=== PATIENT | male | born 1995 | race American Indian/Alaskan Native ===

== ENCOUNTER 2020-05-15 01:40 | Emergency (ER) | payer SELFPAY ==
--- NOTE | 2020-05-15 02:15 | EDM.PDOCBH ---
ED HPI GENERAL MEDICAL PROBLEM - General Chief Complaint: Behavioral/Psych Stated Complaint: ANXIETY Time Seen by Provider: 05/15/20 02:05 Source of Information: Reports: Patient History Limitations: Reports: No Limitations - History of Present Illness INITIAL COMMENTS - FREE TEXT/NARRATIVE: ED with c/o anxiety started approximately 30" prior. Ran out of mediation one month ago. Had been on sertraline for past year. Has not attempted to make appointment in clinic . No thoughts of self harm, No hallucinations. Moved here from [place] one month ago. - Related Data Allergies Allergy/AdvReac Type Severity Reaction Status Date / Time No Known Allergies Allergy Verified 05/15/20 02:05 Home Meds: Home Meds . [No Known Home Meds] 05/15/20 [History] ED ROS GENERAL - Review of Systems Review Of Systems: Comprehensive ROS is negative, except as noted in HPI. ED EXAM, BEHAVIORAL HEALTH - Physical Exam Exam: See Below Exam Limited By: No Limitations General Appearance: Alert, No Apparent Distress, Obese Eye Exam: Bilateral Eye: EOMI Ears: Normal External Exam Nose: Normal Inspection Throat/Mouth: Normal Inspection Head: Atraumatic, Normocephalic Neck: Normal Inspection Respiratory/Chest: No Respiratory Distress, Normal Breath Sounds Cardiovascular: Normal Peripheral Pulses, Regular Rate, Rhythm Neurological: Alert, Normal Gait, Oriented x 3 Psychiatric: Alert, Oriented, Flat Affect, Poor Eye Contact. No: Homicidal Thoughts, Suicidal Plan, Suicidal Thoughts, Pressured Speech Skin Exam: Warm, Dry, Intact, Normal color COURSE, BEHAVIORAL HEALTH COMP - Course Vital Signs: Last Vital Signs Temp 97.3 F 05/15/20 02:02 Pulse 58 L 05/15/20 02:02 Resp 18 05/15/20 02:02 BP 135/87 05/15/20 02:02 Pulse Ox 95 05/15/20 02:02 Orders, Labs, Meds: Active Orders 24 hr Category Date Time Status DRUG SCREEN URINE BIORAD [URCHEM] Stat Lab 05/15/20 02:00 Received Departure - Departure Time of Disposition: 02:17 Disposition: Home, Self-Care 01 Condition: Good Clinical Impression: Anxiety - Discharge Information *PRESCRIPTION DRUG MONITORING PROGRAM REVIEWED*: Yes *COPY OF PRESCRIPTION DRUG MONITORING REPORT IN PATIENT OLIVER: No Instructions: Managing Anxiety, Adult Additional Instructions: Make appointment in clinic or with [facility] for ongoing managment of medication for anxiety avoid caffeine, avoind any type of energy drinks rest slow deep breathing exercises when feeling anxious Sepsis Event Note (ED) - Evaluation Sepsis Screening Result: No Definite Risk - Focused Exam Vital Signs: Vital Signs Temp Pulse Resp BP Pulse Ox 05/15/20 02:02 97.3 F 58 L 18 135/87 95 - My Orders Last 24 Hours: My Active Orders 05/15/20 02:00 DRUG SCREEN URINE BIORAD [URCHEM] Stat - Assessment/Plan Last 24 Hours: My Active Orders 05/15/20 02:00 DRUG SCREEN URINE BIORAD [URCHEM] Stat
[2020-05-15] MEDS: hydrOXYzine HCl 25 MG Tab PO ONE (02:28)
== END 2020-05-15 02:32 | disposition home or self-care (01) ==
LOC: DL.ED 01:40
DX: F41.9 Anxiety disorder, unspecified (principal)
CPT/HCPCS: 80305; 99283; A9270

== ENCOUNTER 2020-05-19 22:18 | Emergency (ER) | payer SELFPAY ==
[2020-05-19] MEDS ORDERED: hydrOXYzine HCl 25 MG Tab PO ONE (23:15)
--- NOTE | 2020-05-19 23:37 | EDM.PDOCBH ---
ED HPI GENERAL MEDICAL PROBLEM - General Chief Complaint: Behavioral/Psych Stated Complaint: ANXIETY Time Seen by Provider: 05/19/20 23:00 Source of Information: Reports: Patient, RN, RN Notes Reviewed History Limitations: Reports: No Limitations - History of Present Illness INITIAL COMMENTS - FREE TEXT/NARRATIVE: Patient is a 25-year-old male who presents to ER with complaint of anxiety. Patient states the anxiety began about 10 to 15 minutes prior to arrival in the ER. Patient is not tachycardic, does not have chest pain, has a very flat affect, does not appear anxious whatsoever. States he is to be taking sertraline and has used gabapentin in the past for anxiety. Patient states he has run out of these medications and has not yet made an appointment to get any kind of medications restarted. Is any other health problems. Onset: Today, Sudden - Related Data Allergies Allergy/AdvReac Type Severity Reaction Status Date / Time No Known Allergies Allergy Verified 05/19/20 22:29 Home Meds: Home Meds . [No Known Home Meds] 05/15/20 [History] Past Medical History - Past Health History Medical/Surgical History: Denies Medical/Surgical History Psychiatric History: Reports: Anxiety, Depression Social & Family History - Family History Family Medical History: No Pertinent Family History - Tobacco Use Tobacco Use Status *Q: Never Tobacco User Second Hand Smoke Exposure: No - Caffeine Use Caffeine Use: Reports: Soda - Recreational Drug Use Recreational Drug Use: No ED ROS GENERAL - Review of Systems Review Of Systems: Comprehensive ROS is negative, except as noted in HPI. ED EXAM, BEHAVIORAL HEALTH - Physical Exam Exam: See Below Exam Limited By: No Limitations General Appearance: Alert, WD/WN, No Apparent Distress Eye Exam: Bilateral Eye: EOMI, Normal Inspection Ears: Normal External Exam, Hearing Grossly Normal Nose: Normal Inspection Throat/Mouth: Normal Inspection, Normal Voice, No Airway Compromise Head: Atraumatic, Normocephalic Neck: Normal Inspection, Supple, Non-Tender, Full Range of Motion Respiratory/Chest: No Respiratory Distress, Lungs Clear, Normal Breath Sounds, No Accessory Muscle Use, Chest Non-Tender Cardiovascular: Normal Peripheral Pulses, Regular Rate, Rhythm, No Edema, No Gallop, No JVD, No Murmur, No Rub GI/Abdominal: Normal Bowel Sounds, Soft, Non-Tender, No Organomegaly, No Distention, No Abnormal Bruit, No Mass (Male) Exam: Deferred Rectal (Males) Exam: Deferred Back Exam: Normal Inspection, Full Range of Motion, NT Extremities: Normal Inspection, Normal Range of Motion, Non-Tender, Normal Capillary Refill, No Pedal Edema Neurological: Alert, Normal Mood/Affect, CN II-XII Intact, Normal Cognition, Normal Gait, Normal Reflexes, No Motor/Sensory Deficits, Oriented x 3 Psychiatric: Alert, Normal Affect, Normal Cognition, Normal Mood, Oriented Skin Exam: Warm, Dry, Intact, Normal color, No rash COURSE, BEHAVIORAL HEALTH COMP - Course Vital Signs: Last Vital Signs Temp 98.5 F 05/19/20 22:30 Pulse 84 05/19/20 22:30 Resp 16 05/19/20 22:30 BP 148/86 H 05/19/20 22:30 Pulse Ox 97 05/19/20 22:30 Orders, Labs, Meds: Medications Discontinued Medications Generic Name Dose Route Start Last Admin Trade Name Freq PRN Reason Stop Dose Admin Hydroxyzine HCl 25 mg 05/19/20 23:15 05/19/20 23:34 Atarax PO 05/19/20 23:16 25 mg ONETIME ONE Administration Departure - Departure Time of Disposition: 23:42 Disposition: Home, Self-Care 01 Condition: Good Clinical Impression: Anxiety - Discharge Information *PRESCRIPTION DRUG MONITORING PROGRAM REVIEWED*: No *COPY OF PRESCRIPTION DRUG MONITORING REPORT IN PATIENT OLIVER: No Instructions: Managing Anxiety, Adult Forms: ED Department Discharge Additional Instructions: Make an appointment at the clinic to get medications reordered Follow up with the [facility] regarding anxiety Sepsis Event Note (ED) - Evaluation Sepsis Screening Result: No Definite Risk - Focused Exam Vital Signs: Vital Signs Temp Pulse Resp BP Pulse Ox 05/19/20 22:30 98.5 F 84 16 148/86 H 97
== END 2020-05-19 23:46 | disposition home or self-care (01) ==
LOC: DL.ED 22:18
DX: F41.9 Anxiety disorder, unspecified (principal)
CPT/HCPCS: 99283; A9270

== ENCOUNTER 2020-06-04 21:29 | Emergency (ER) | payer SELFPAY ==
[2020-06-04] MEDS ORDERED: Famotidine 20 MG Tab PO ONE (21:51)
[2020-06-04] MEDS ORDERED: Ondansetron 4 MG Tab.DIS PO ONE (21:51)
--- NOTE | 2020-06-04 21:56 | EDM.PDOC ---
ED HPI GENERAL MEDICAL PROBLEM - General Chief Complaint: Gastrointestinal Problem Stated Complaint: GENERAL Time Seen by Provider: 06/04/20 21:45 Source of Information: Reports: Patient, Old Records, RN, RN Notes Reviewed History Limitations: Reports: No Limitations - History of Present Illness INITIAL COMMENTS - FREE TEXT/NARRATIVE: Patient presents to the ED via personal vehicle with complaints of nausea. The patient reports the nausea began about one hour prior and has not progressed or worsened in that time. He has not taken any medications for this problem. The patient does attest to drinking 750 mL of celsa last night; he denies tobacco and recreational drug use. He denies recent illness, fever, shaking chills, vision changes, vomiting, hematemesis, dysuria, hematuria, diarrhea, melena, or hematochezia. He states he does not have a history of chronic gastroenterology conditions. Patient states he was able to eat a noon meal of rice and steak with no problems. - Related Data Allergies Allergy/AdvReac Type Severity Reaction Status Date / Time No Known Allergies Allergy Verified 06/04/20 21:32 Home Meds: Home Meds . [No Known Home Meds] 05/15/20 [History] Past Medical History - Past Health History Medical/Surgical History: Denies Medical/Surgical History Psychiatric History: Reports: Anxiety, Depression Social & Family History - Family History Family Medical History: No Pertinent Family History - Tobacco Use Tobacco Use Status *Q: Never Tobacco User Second Hand Smoke Exposure: No - Caffeine Use Caffeine Use: Reports: None - Recreational Drug Use Recreational Drug Use: No ED ROS GENERAL - Review of Systems Review Of Systems: Comprehensive ROS is negative, except as noted in HPI. ED EXAM, GI/ABD - Physical Exam Exam: See Below Exam Limited By: No Limitations General Appearance: Alert, No Apparent Distress Eyes: Bilateral: EOMI Throat/Mouth: Normal Inspection, Normal Voice, No Airway Compromise Head: Normocephalic Respiratory/Chest: No Respiratory Distress, Lungs Clear, Normal Breath Sounds, No Accessory Muscle Use, Chest Non-Tender Cardiovascular: Normal Peripheral Pulses, Regular Rate, Rhythm, No Edema, No Gallop, No JVD, No Murmur, No Rub GI/Abdominal Exam: Normal Bowel Sounds, Soft, Non-Tender, No Distention, No M ass, Pelvis Stable (Male) Exam: Deferred Rectal (Males) Exam: Deferred Back Exam: Normal Inspection, Full Range of Motion. No: CVA Tenderness (L), CVA Tenderness (R) Extremities: Normal Inspection, Normal Range of Motion, Non-Tender, Normal Capillary Refill, No Pedal Edema Neurological: Alert, Oriented, CN II-XII Intact, Normal Cognition, Normal Gait, No Motor/Sensory Deficits Psychiatric: Normal Mood, Flat Affect Skin Exam: Warm, Dry, Intact, Normal Color, No Rash. No: Ecchymosis, Erythema, Mottled, Pallor, Petechiae Course - Vital Signs Last Recorded V/S: Last Vital Signs Temp 97.9 F 06/04/20 21:32 Pulse 71 06/04/20 21:32 Resp 16 06/04/20 21:32 BP 129/93 H 06/04/20 21:32 Pulse Ox 97 06/04/20 21:32 - Orders/Labs/Meds Meds: Medications Discontinued Medications Generic Name Dose Route Start Last Admin Trade Name Freq PRN Reason Stop Dose Admin Famotidine 20 mg 06/04/20 21:51 06/04/20 22:01 Pepcid PO 06/04/20 21:52 20 mg ONETIME ONE Administration Ondansetron HCl 4 mg 06/04/20 21:51 06/04/20 22:01 Zofran Odt PO 06/04/20 21:52 4 mg ONETIME ONE Administration - Re-Assessments/Exams Free Text/Narrative Re-Assessment/Exam: 06/04/20 Patient verbalized an slight improvement in nausea following Zofran and Pepcid. Nausea likely related to consumption of liquor <24 hours ago. Patient instructed to follow up with his primary care provider should symptoms persist past 24 hours, or should he develop fever, shaking chills or vomiting/diarrhea for longer than 48 hours. Patient verbalized understanding and agreement with the plan of care. Departure - Departure Time of Disposition: 22:15 Disposition: Home, Self-Care 01 Condition: Good Clinical Impression: Nausea - Discharge Information *PRESCRIPTION DRUG MONITORING PROGRAM REVIEWED*: Not Applicable *COPY OF PRESCRIPTION DRUG MONITORING REPORT IN PATIENT OLIVER: Not Applicable Instructions: Nausea, Adult Forms: ED Department Discharge Additional Instructions: 1.) Eat small, frequent meals to avoid nausea. 2.) Avoid spicy, greasy, high-fat foods while nausea persists. 3.) Drink plenty of water to stay hydrated. 4.) Follow up with your primary care provider if nausea persists for three days. 5.) Follow up with your primary care provider, or return to the emergency department, with fever, shaking chills or vomiting/diarrhea that does not improve in three days. Sepsis Event Note (ED) - Evaluation Sepsis Screening Result: No Definite Risk - Focused Exam Vital Signs: Vital Signs Temp Pulse Resp BP Pulse Ox 06/04/20 21:32 97.9 F 71 16 129/93 H 97
== END 2020-06-04 22:22 | disposition home or self-care (01) ==
LOC: DL.ED 21:29
DX: R11.0 Nausea (principal)
CPT/HCPCS: 99283; A9270-GY

== ENCOUNTER 2020-06-05 01:17 | Emergency (ER) | payer SELFPAY ==
[2020-06-05 02:02] LABS: AMPHETAMINES,URINE NEGATIVE (NEGATIVE); BARBITURATES,URINE NEGATIVE (NEGATIVE); BENZODIAZEPINE,URINE NEGATIVE (NEGATIVE); MDMA (ECSTASY), URINE NEGATIVE (NEGATIVE); METHADONE,URINE NEGATIVE (NEGATIVE); METHAMPHETAMINES,URINE NEGATIVE (NEGATIVE); OPIATES,URINE NEGATIVE (NEGATIVE); OXYCODONE,URINE NEGATIVE (NEGATIVE); PHENCYCLIDINE,URINE NEGATIVE (NEGATIVE); TCA,URINE NEGATIVE (NEGATIVE)
[2020-06-05 02:11] LABS: CHLORIDE,CL 102 mmol/L (98-107); SODIUM,NA 138 mmol/L (136-145)
[2020-06-05] MEDS ORDERED: Ondansetron 4 MG Tab.DIS PO ONE (02:16)
--- NOTE | 2020-06-05 02:22 | EDM.PDOC ---
ED HPI GENERAL MEDICAL PROBLEM - General Chief Complaint: Gastrointestinal Problem Stated Complaint: NAUSEA HAS GOTTEN WORSE Time Seen by Provider: 06/05/20 01:25 Source of Information: Reports: Patient, RN History Limitations: Reports: No Limitations - History of Present Illness INITIAL COMMENTS - FREE TEXT/NARRATIVE: ED with report that nausea came back. Seen earlier in ED tonight for same complaint. Patient drinking night prior. Has eaten today, no vomiting. Denies CoVID exposure, , recent testing negative. Hx of anxiety, not on medication current to treat. Reports chills but walked from [facility] to [facility] then got ride back to [facility]. - Related Data Allergies Allergy/AdvReac Type Severity Reaction Status Date / Time No Known Allergies Allergy Verified 06/05/20 01:39 Home Meds: Home Meds . [No Known Home Meds] 05/15/20 [History] Past Medical History - Past Health History Medical/Surgical History: Denies Medical/Surgical History Psychiatric History: Reports: Anxiety, Depression Social & Family History - Family History Family Medical History: No Pertinent Family History - Tobacco Use Tobacco Use Status *Q: Never Tobacco User Second Hand Smoke Exposure: No - Caffeine Use Caffeine Use: Reports: None - Recreational Drug Use Recreational Drug Use: No ED ROS GENERAL - Review of Systems Review Of Systems: Comprehensive ROS is negative, except as noted in HPI. ED EXAM, GI/ABD - Physical Exam Exam: See Below Exam Limited By: No Limitations General Appearance: Alert, No Apparent Distress, Other (FAS features) Eyes: Bilateral: EOMI Ears: Normal External Exam Nose: Normal Inspection Throat/Mouth: Normal Inspection Head: Atraumatic, Normocephalic Neck: Normal Inspection Respiratory/Chest: No Respiratory Distress, Lungs Clear, Normal Breath Sounds Cardiovascular: Normal Peripheral Pulses, Regular Rate, Rhythm GI/Abdominal Exam: Normal Bowel Sounds, Soft, Non-Tender Neurological: No: Normal Cognition (cognitive delay) Psychiatric: Flat Affect Skin Exam: Warm, Dry, Intact, Normal Color Course - Vital Signs Last Recorded V/S: Last Vital Signs Temp 97.8 F 06/05/20 01:21 Pulse 63 06/05/20 01:21 Resp 18 06/05/20 01:21 BP 132/90 06/05/20 01:21 Pulse Ox 98 06/05/20 01:21 - Orders/Labs/Meds Orders: Active Orders 24 hr Category Date Time Status Ondansetron [Zofran ODT] Med 06/05/20 02:16 Once 4 mg PO ONETIME ONE Labs: Laboratory Tests 06/05/20 06/05/20 06/05/20 Range/Units 01:38 01:44 01:44 WBC 9.7 (5.0-10.0) 10^3/uL RBC 5.58 (4.6-6.2) 10^6/uL Hgb 16.1 (14.0-18.0) g/dL Hct 46.2 (40.0-54.0) % MCV 82.8 (80-100) fL MCH 28.9 (27.0-34.0) pg MCHC 34.8 (33.0-35.0) g/dL Plt Count 260 (150-450) 10^3/uL Neut % (Auto) 56.3 (42.2-75.2) % Lymph % (Auto) 32.8 (20.5-50.1) % [place] % (Auto) 8.0 (2-8) % Eos % (Auto) 2.6 (1.0-3.0) % Baso % (Auto) 0.3 (0.0-1.0) % Sodium 138 (136-145) mmol/L Potassium 4.0 (3.5-5.1) mmol/L Chloride 102 (98-107) mmol/L Carbon Dioxide 29 (21-32) mmol/L Anion Gap 11.0 (7-13) mEq/L BUN 18 (7-18) mg/dL Creatinine 0.87 (0.70-1.30) mg/dL Est Cr Clr Drug Dosing 110.57 mL/min Estimated GFR (MDRD) > 60 BUN/Creatinine Ratio 20.7 (No establ ref range) Glucose 122 H (74-99) mg/dL Calcium 8.6 (8.5-10.1) mg/dL Total Bilirubin 0.2 (0.2-1.0) mg/dL AST 18 (15-37) U/L ALT 42 (16-63) U/L Alkaline Phosphatase 95 (46-116) U/L Total Protein 7.6 (6.4-8.2) g/dL Albumin 3.8 (3.4-5.0) g/dL Globulin 3.8 Albumin/Globulin Ratio 1.0 Urine Opiates Screen Negative (NEGATIVE) Ur Oxycodone Screen Negative (NEGATIVE) Urine Methadone Screen Negative (NEGATIVE) Ur Barbiturates Screen Negative (NEGATIVE) U Tricyclic Antidepress Negative (NEGATIVE) Ur Phencyclidine Scrn Negative (NEGATIVE) Ur Amphetamine Screen Negative (NEGATIVE) U Methamphetamines Scrn Negative (NEGATIVE) Urine MDMA Screen Negative (NEGATIVE) U Benzodiazepines Scrn Negative (NEGATIVE) Urine Cocaine Screen Negative (NEGATIVE) U Marijuana (THC) Screen Negative (NEGATIVE) Ethyl Alcohol < 3 (0) mg/dL Departure - Departure Time of Disposition: :17 Disposition: Home, Self-Care 01 Condition: Good Clinical Impression: Nausea - Discharge Information *PRESCRIPTION DRUG MONITORING PROGRAM REVIEWED*: No *COPY OF PRESCRIPTION DRUG MONITORING REPORT IN PATIENT OLIVER: No Instructions: Nausea, Adult Additional Instructions: nothing to eat for 2 hours few sips water sparingly in morning advance diet as tolerated clinic follow up as needed avoid alcohol, avoid smoking avoid energy drinks, caffeine and spicy foods Sepsis Event Note (ED) - Evaluation Sepsis Screening Result: No Definite Risk - Focused Exam Vital Signs: Vital Signs Temp Pulse Resp BP Pulse Ox 06/05/20 01:21 97.8 F 63 18 132/90 98 - My Orders Last 24 Hours: My Active Orders 06/05/20 02:16 Ondansetron [Zofran ODT] 4 mg PO ONETIME ONE - Assessment/Plan Last 24 Hours: My Active Orders 06/05/20 02:16 Ondansetron [Zofran ODT] 4 mg PO ONETIME ONE
== END 2020-06-05 02:23 | disposition home or self-care (01) ==
LOC: DL.ED 01:17
DX: R11.0 Nausea (principal)
CPT/HCPCS: 36415; 80053; 80305; 80307; 85025; 99283; A9270

== ENCOUNTER 2020-06-05 23:02 | Emergency (ER) | payer MEDICAID ==
[2020-06-05] MEDS ORDERED: hydrOXYzine HCl 25 MG Tab PO ONE (23:16)
--- NOTE | 2020-06-05 23:21 | EDM.PDOCBH ---
ED HPI GENERAL MEDICAL PROBLEM - General Chief Complaint: Behavioral/Psych Stated Complaint: ANXIETY/FEELS SICK Time Seen by Provider: 06/05/20 23:16 Source of Information: Reports: Patient History Limitations: Reports: No Limitations - History of Present Illness INITIAL COMMENTS - FREE TEXT/NARRATIVE: return for same. still has anxiety. - Related Data Allergies Allergy/AdvReac Type Severity Reaction Status Date / Time No Known Allergies Allergy Verified 06/05/20 23:08 Home Meds: Home Meds . [No Known Home Meds] 05/15/20 [History] Past Medical History - Past Health History Medical/Surgical History: Denies Medical/Surgical History Psychiatric History: Reports: Anxiety, Depression Social & Family History - Family History Family Medical History: No Pertinent Family History - Tobacco Use Tobacco Use Status *Q: Never Tobacco User Second Hand Smoke Exposure: No - Caffeine Use Caffeine Use: Reports: None - Recreational Drug Use Recreational Drug Use: No ED ROS GENERAL - Review of Systems Review Of Systems: Comprehensive ROS is negative, except as noted in HPI. ED EXAM, BEHAVIORAL HEALTH - Physical Exam Exam: See Below Exam Limited By: No Limitations General Appearance: Alert, WD/WN, No Apparent Distress, Anxious Eye Exam: Bilateral Eye: PERRL (pupils ess ER $mm) Ears: Hearing Grossly Normal Throat/Mouth: Normal Voice, No Airway Compromise Head: Atraumatic Neck: Non-Tender, Full Range of Motion Respiratory/Chest: No Respiratory Distress Cardiovascular: Regular Rate, Rhythm GI/Abdominal: Soft, Non-Tender (Male) Exam: Deferred Rectal (Males) Exam: Deferred Back Exam: Full Range of Motion Extremities: Normal Range of Motion Neurological: Alert, Normal Cognition, Normal Gait, No Motor/Sensory Deficits, Oriented x 3 Psychiatric: Flat Affect Skin Exam: Warm, Dry, Normal color COURSE, BEHAVIORAL HEALTH COMP - Course Vital Signs: Last Vital Signs Temp 35.9 C L 06/05/20 23:05 Pulse 56 L 06/05/20 23:05 Resp 18 06/05/20 23:05 BP 127/86 06/05/20 23:05 Pulse Ox 97 06/05/20 23:05 Orders, Labs, Meds: Active Orders 24 hr Category Date Time Status hydrOXYzine HCL [Atarax] Med 06/05/20 23:16 Once 25 mg PO ONETIME ONE Departure - Departure Time of Disposition: 23:20 Disposition: Home, Self-Care 01 Condition: Good Clinical Impression: Anxiety - Discharge Information Additional Instructions: 1) follow up at clinic tomorrow for anxiety meds and evaluation rx given; hydroxyzine 25mg bid x 12 Sepsis Event Note (ED) - Evaluation Sepsis Screening Result: No Definite Risk - Focused Exam Vital Signs: Vital Signs Temp Pulse Resp BP Pulse Ox 06/05/20 23:05 35.9 C L 56 L 18 127/86 97 - My Orders Last 24 Hours: My Active Orders 06/05/20 23:16 hydrOXYzine HCL [Atarax] 25 mg PO ONETIME ONE - Assessment/Plan Last 24 Hours: My Active Orders 06/05/20 23:16 hydrOXYzine HCL [Atarax] 25 mg PO ONETIME ONE
== END 2020-06-05 23:26 | disposition home or self-care (01) ==
LOC: DL.ED 23:02
DX: F41.9 Anxiety disorder, unspecified (principal)
CPT/HCPCS: 99283; A9270

== ENCOUNTER 2020-06-06 22:27 | Emergency (ER) | payer SELFPAY ==
[2020-06-06] MEDS ORDERED: hydrOXYzine HCl 25 MG Tab PO ONE (22:34)
--- NOTE | 2020-06-06 22:36 | EDM.PDOCBH ---
ED HPI GENERAL MEDICAL PROBLEM - General Chief Complaint: Behavioral/Psych Stated Complaint: NAUSEA, ANXIETY Time Seen by Provider: 06/06/20 22:34 Source of Information: Reports: Patient History Limitations: Reports: No Limitations - History of Present Illness INITIAL COMMENTS - FREE TEXT/NARRATIVE: unable to get his Rx. - Related Data Allergies Allergy/AdvReac Type Severity Reaction Status Date / Time No Known Allergies Allergy Verified 06/05/20 23:08 Home Meds: Home Meds . [No Known Home Meds] 05/15/20 [History] Past Medical History - Past Health History Medical/Surgical History: Denies Medical/Surgical History Psychiatric History: Reports: Anxiety, Depression Social & Family History - Family History Family Medical History: No Pertinent Family History - Caffeine Use Caffeine Use: Reports: None ED ROS GENERAL - Review of Systems Review Of Systems: Comprehensive ROS is negative, except as noted in HPI. ED EXAM, BEHAVIORAL HEALTH - Physical Exam Exam: See Below Exam Limited By: No Limitations General Appearance: Alert, WD/WN, Anxious, Mild Distress Eye Exam: Bilateral Eye: PERRL (pupils ER @ 4mm) Ears: Hearing Grossly Normal Throat/Mouth: Normal Voice, No Airway Compromise Head: Atraumatic Neck: Non-Tender, Full Range of Motion Respiratory/Chest: No Respiratory Distress Cardiovascular: Regular Rate, Rhythm GI/Abdominal: Soft, Non-Tender (Male) Exam: Deferred Rectal (Males) Exam: Deferred Back Exam: Full Range of Motion Extremities: Normal Range of Motion Neurological: Alert, Normal Cognition, Normal Gait, No Motor/Sensory Deficits, Oriented x 3 Psychiatric: Flat Affect Skin Exam: Warm, Dry, Normal color COURSE, BEHAVIORAL HEALTH COMP - Course Vital Signs: Last Vital Signs Temp 36.2 C 06/06/20 22:31 Pulse 121 H 06/06/20 22:31 Resp 19 06/06/20 22:31 BP 139/96 H 06/06/20 22:31 Pulse Ox 97 06/06/20 22:31 Orders, Labs, Meds: Active Orders 24 hr Category Date Time Status hydrOXYzine HCL [Atarax] Med 06/06/20 22:34 Once 25 mg PO ONETIME ONE Departure - Departure Time of Disposition: 22:35 Disposition: Home, Self-Care 01 Condition: Good Clinical Impression: Anxiety - Discharge Information Additional Instructions: 1) follow up at clinic Sepsis Event Note (ED) - Evaluation Sepsis Screening Result: No Definite Risk - Focused Exam Vital Signs: Vital Signs Temp Pulse Resp BP Pulse Ox 06/06/20 22:31 36.2 C 121 H 19 139/96 H 97 - My Orders Last 24 Hours: My Active Orders 06/06/20 22:34 hydrOXYzine HCL [Atarax] 25 mg PO ONETIME ONE - Assessment/Plan Last 24 Hours: My Active Orders 06/06/20 22:34 hydrOXYzine HCL [Atarax] 25 mg PO ONETIME ONE
== END 2020-06-06 22:41 | disposition home or self-care (01) ==
LOC: DL.ED 22:27
DX: F41.9 Anxiety disorder, unspecified (principal)
CPT/HCPCS: 99283; A9270